=== PATIENT | male | born 1970 | race Caucasian/White ===

== ENCOUNTER 2019-08-01 17:16 | Inpatient (IN) ==
[2019-08-01] MEDS ORDERED: LACTATED RINGERS 1,000 ML IV STA (17:41)
[2019-08-01] MEDS ORDERED: DIPHTHERIA/TETANUS ADULT VACCINE 0.5 ML SYRINGE IM ONE (17:41)
[2019-08-01] MEDS ORDERED: DIPH/TET/ACEL PERT BOOSTER VACCINE 0.5 ML VIAL IM ONE (18:12)
[2019-08-01 19:35] LABS: Troponin I < 0.015 NG/ML (0.00-0.045)
[2019-08-01] MEDS ORDERED: KETOROLAC 30 MG/1 ML VIAL ONE (20:05)
[2019-08-01] MEDS ORDERED: ACETAMINOPHEN 325 MG TABLET PO PRN (20:06)
[2019-08-01] MEDS ORDERED: KETOROLAC 30 MG/1 ML VIAL IV STA (20:09)
[2019-08-01 20:14] LABS: Basophils % 0.4 % (0.0-0.8); Eosinophils % 0.1 % (0.00-10.9); Hemoglobin 15.5 GM/DL (14.0-18.0); Immature Granulocytes % 0.7 %; Immature Granulocytes Absolute 0.05 #; Lymphocytes # 1.4 10*3/uL (1.4-4.0); Lymphocytes % 18.8 % (21.2-54.2); Mean Corpuscular HGB Conc 33.7 GM/DL (32-36); Mean Corpuscular Volume 91.8 FL (87-102); Mean Platelet Volume 10.1 FL (9.6-12.0); Monocytes % 8.6 % (1.7-12.7); Neutrophils % 71.4 % (38.7-73.9); Platelet Count 152 T/CUMM (130-400); Red Blood Count 5.01 MC/CUMM (3.8-5.5); Red Cell Distribution Width 12.2 % (9.3-17.3); White Blood Count 7.5 T/CUMM (4-12)
[2019-08-01 20:30] LABS: INR 1.1; PT Patient Result 12.4 SECS (9.6-12.2); Partial Thromboplastin Time 24.5 SECS (20.8-36.0)
[2019-08-01 20:34] LABS: Troponin I < 0.015 NG/ML (0.00-0.045)
[2019-08-01 20:35] LABS: Albumin 3.7 G/DL (3.4-5.0); Bilirubin,Total 0.5 MG/DL (0.2-1.0); Calcium 8.9 MG/DL (8.5-10.1); Osmolality,Calculated 280.1 MOS/KG (273-304); Total Protein 7.6 G/DL (6.4-8.3)
[2019-08-01] MEDS: HYDROmorphone 2 MG/1 ML VIAL IV PRN (20:56)
[2019-08-01] MEDS: ONDANSETRON 4 MG/2 ML VIAL IV PRN (20:56)
[2019-08-01] MEDS: METOPROLOL TARTRATE 50 MG TABLET PO SCH (22:28)
[2019-08-01] MEDS: ceFAZolin 1,000 MG in SYRINGE 1 EACH IV SCH (22:28)
[2019-08-02] MEDS: HYDROmorphone 2 MG/1 ML VIAL IV PRN ×2 (05:09→10:13)
[2019-08-02] MEDS: SODIUM CHLORIDE 0.9% 1,000 ML IV SCH ×4 (05:16→19:05)
[2019-08-02] MEDS: ONDANSETRON 4 MG/2 ML VIAL IV PRN ×3 (05:45→17:17)
[2019-08-02] MEDS: ceFAZolin 1,000 MG in SYRINGE 1 EACH IV SCH ×3 (05:50→20:36)
[2019-08-02] MEDS: amLODIPine 10 MG TABLET PO SCH (09:40)
[2019-08-02] MEDS: PANTOPRAZOLE 40 MG VIAL IV SCH (09:40)
[2019-08-02 10:05] LABS: Apearance,Urine CLEAR (Clear); Bilirubin,Urine Negative (Negative); Blood, Urine Negative (Negative); Glucose,Urine (UA) 50 mg/dL (Negative); Ketones,Urine Negative (Negative); Mucus,Urine Occasional /LPF (Occasional); Nitrite,Urine Negative (Negative); Protein,Urine Negative; RBC,Urine <1 /HPF (0-4); Urine Color Yellow (Yellow); Urine Specific Gravity 1.025 (1.001-1.035); WBC,Urine 2 /HPF (0-6)
[2019-08-02 10:13] LABS: Barbiturates Screen,Urine Negative (Negative); Benzodiazepines Screen,Urine Negative (Negative); Cannabinoid Screen,Urine Negative (Negative); Opiate Screen,Urine Positive (Negative); Phencyclidine Screen,Urine Negative (Negative)
[2019-08-02] MEDS: PROMETHAZINE 25 MG/1 ML VIAL IM PRN ×2 (11:32→21:03)
[2019-08-02] MEDS ORDERED: LORazepam 0.5 MG TABLET PO ONE (14:27)
[2019-08-02] MEDS: METHOCARBAMOL 750 MG TABLET PO SCH ×2 (15:12→20:36)
[2019-08-02] MEDS ORDERED: KETOROLAC 10 MG TABLET PO PRN (15:35)
[2019-08-02] MEDS: BACITRACIN OINT 0.9 GM PACK TOP SCH (17:17)
[2019-08-02] MEDS: METOPROLOL TARTRATE 50 MG TABLET PO SCH (20:36)
[2019-08-03] MEDS: SODIUM CHLORIDE 0.9% 1,000 ML IV SCH ×3 (04:54→23:31)
[2019-08-03] MEDS: ceFAZolin 1,000 MG in SYRINGE 1 EACH IV SCH ×3 (04:54→21:27)
[2019-08-03] MEDS: amLODIPine 10 MG TABLET PO SCH (08:55)
[2019-08-03] MEDS: PANTOPRAZOLE 40 MG VIAL IV SCH (08:55)
[2019-08-03] MEDS: BACITRACIN OINT 0.9 GM PACK TOP SCH (08:55)
[2019-08-03] MEDS: METHOCARBAMOL 750 MG TABLET PO SCH ×3 (08:55→21:26)
[2019-08-03] MEDS ORDERED: LORazepam 2 MG/1 ML VIAL IV ONE (11:58)
[2019-08-03] MEDS: METOPROLOL TARTRATE 50 MG TABLET PO SCH (21:27)
[2019-08-04] MEDS: ceFAZolin 1,000 MG in SYRINGE 1 EACH IV SCH (04:41)
[2019-08-04] MEDS: SODIUM CHLORIDE 0.9% 1,000 ML IV SCH (07:53)
[2019-08-04 08:17] VITALS: BP 147/74
[2019-08-04] MEDS: BACITRACIN OINT 0.9 GM PACK TOP SCH (08:29)
[2019-08-04] MEDS: amLODIPine 10 MG TABLET PO SCH (08:29)
[2019-08-04] MEDS: METHOCARBAMOL 750 MG TABLET PO SCH (08:29)
[2019-08-04] MEDS: PANTOPRAZOLE 40 MG VIAL IV SCH (08:31)
== END 2019-08-04 10:05 | disposition home or self-care (01) | DRG 184 ==
LOC: EDUNIT# → EDBD → N.ED 17:16 → N.EDINP 19:17 → N.3E 20:20
PROVIDERS: ADMIT Student in an Organized Health Care Education/Training Program; ATTEND Student in an Organized Health Care Education/Training Program